=== PATIENT | male | born 1940 | race Caucasian/White ===

== ENCOUNTER 2017-06-29 13:34 | Emergency (ER) | payer MEDICARE, OTHER ==
[~2017-06-29] VITALS: Ht 177.8 cm; Wt 100.0 kg
[~2017-06-29 13:34] MED LIST: ADVIL200 MG PO; ALLEGRA180 MG OR; AMOXIL500 M1 OR; ASPIRIN EC81 MG PO; AUGMENTIN875TAB PO; BACTRIM DS1 TAB PO; CENTRUM SILVER PO; CIPROFLOXACIN250 MG PO; CIPROFLOXACN250 MG PO; CITALOPRAM10 MG PO; DILAUDID 2MG2 MG/TA1 PO; DILAUDID 2MG2 MG/TAB PO; DOXYCYCL HYC100 MG PO; DULERA1 AE1 IN; FLEXERIL OR; FLEXERIL PO; FLOMAX0.4 M1 PO; FLORASTOR250 M1 PO; GLIPIZIDE ER2.5 MG PO; GLIPIZIDE ER5 M1 PO; HYDROCODONE/ACE1 TAB; HYDROCODONE/ACE1 TAB PO; HYDROXYCHLOR200 MG PO; HYDROXYZ HCL25 MG PO; HYDROXYZINE HCL25 M1 PO; KEFLEX500 M1 PO; LANTUS100 MG/ML SC; LORTAB 10 PO; LORTAB 10-325 M1 TAB PO; LORTAB 1010 MG PO; LORTAB 5-325 MG1 TAB PO; LORTAB5 PO; METHOTREXATE2.5 MG; METRONIDAZOL250 MG PO; MULT VITAMI1 PO; NEURONTIN100 MG PO; NORCO1 TA1 PO; NYSTATIN100000 M3 TOP; ONDANSETRON4 MG PO; PERCOCET 5/325M1 TAB OR; PHENERGAN12.5 MG/TA PO; PREDNISONE5 MG; PRILOSEC20 MG OR; PRILOSEC40 MG PO; SULFASALAZIN500 M1 PO; TIZANIDINE HCL4 M1 PO; TRAMADOL HCL50 MG PO; UNK ANTIBIOTIC; VISTARIL PO; ZOFRAN ODT4 MG PO; ZOFRAN ODT4 MG SL; ZOLOFT50 MG PO; ZYRTEC10 MG OR
[2017-06-29 15:01] LABS: HEMATOCRIT 45.5 % (39.0-50.0); HEMOGLOBIN 15.5 g/dl (14.0-18.0); MEAN CELL VOLUME 96.6 fL CALC (80.0-100.0); MEAN CORPUSCULAR HGB 32.9 pG CALC (26.0-32.0); MEAN CORPUSCULAR HGB CONC 34.1 g/L CALC (32.0-36.0); NEUT# 4.97 thou/uL (1.82-7.42); RED BLOOD COUNT 4.71 mill/uL (4.70-6.10); RED CELL DISTRI WIDTH 12.8 % (11.5-15.5)
[2017-06-29 15:04] LABS: ALBUMIN 4.1 g/dL (3.2-5.0); ALKALINE PHOSPHATASE 87 u/l (38-126); ANION GAP 14 (6-22 (CALC)); BILIRUBIN, TOTAL 0.6 mg/dL (0.0-1.4); BUN 18 mg/dL (8-23); BUN/CREATININE RATIO 21 (12-20 (CALC)); CALCIUM 10.1 mg/dL (8.4-10.2); CARBON DIOXIDE 27 mmol/l (22-30); CHLORIDE 105 mmol/l (95-108); CREATININE 0.8 mg/dL (0.7-1.3); GFR > 60 ML/MIN (>=60 (CALC)); GFR FOR AFR.AMER. > 60 ML/MIN (>=60 (CALC)); GLUCOSE 88 mg/dL (82-115); POTASSIUM 4.4 mmol/l (3.5-5.1); SGOT/AST 27 u/l (19-48); SGPT/ALT 35 u/l (11-66); SODIUM 143 mmol/l (137-146); TOTAL PROTEIN 6.7 g/dL (6.3-8.2)
[2017-06-29] MEDS ORDERED: ANTIVERT PO (15:58)
[2017-06-29 16:14] VITALS: BP 125/61
[2017-06-29 17:38] LABS: URINE BILIRUBIN - DIPSTICK NEGATIVE (NEGATIVE); URINE BLOOD DIPSTICK NEGATIVE (NEGATIVE); URINE CLARITY CLEAR; URINE COLOR YELLOW; URINE GLUCOSE - DIPSTICK NEGATIVE (NEGATIVE); URINE KETONE NEGATIVE (NEGATIVE); URINE LEUK ESTERASE NEGATIVE (NEGATIVE); URINE NITRITE - DIPSTICK NEGATIVE (Negative); URINE PROTEIN - DIPSTICK NEGATIVE (NEG-TRACE); URINE UROBILINOGEN - DIPSTICK 0.2 E.U./dL (0.2)
== END 2017-06-29 16:22 | disposition home or self-care (01) ==
LOC: ED 13:34
PROVIDERS: Emergency Medicine
DX: R42 Dizziness and giddiness (principal); R11.2 Nausea with vomiting, unspecified; H53.8 Other visual disturbances; M54.2 Cervicalgia

== ENCOUNTER → 2018-06-21 | Outpatient (REF) | payer MEDICARE, OTHER ==
[~2018-06-21] MED LIST changes: +ANTIVERT PO
[2018-06-21 09:28] LABS: HEMATOCRIT 52.3 % (39.0-50.0); HEMOGLOBIN 17.5 g/dl (14.0-18.0); MEAN CELL VOLUME 93.4 fL CALC (80.0-100.0); MEAN CORPUSCULAR HGB 31.3 pG CALC (26.0-32.0); MEAN CORPUSCULAR HGB CONC 33.5 g/L CALC (32.0-36.0); RED BLOOD COUNT 5.6 mill/uL (4.70-6.10); RED CELL DISTRI WIDTH 17.4 % (11.5-15.5)
[2018-06-21 09:35] LABS: URINE BILIRUBIN - DIPSTICK NEGATIVE (NEGATIVE); URINE BLOOD DIPSTICK NEGATIVE (NEGATIVE); URINE COLOR YELLOW; URINE GLUCOSE - DIPSTICK NEGATIVE (NEGATIVE); URINE KETONE NEGATIVE (NEGATIVE); URINE LEUK ESTERASE NEGATIVE (NEGATIVE); URINE NITRITE - DIPSTICK NEGATIVE (Negative); URINE PROTEIN - DIPSTICK NEGATIVE (NEG-TRACE); URINE SPECIFIC GRAVITY 1.025
[2018-06-21 09:41] LABS: URINE CLARITY CLEAR
[2018-06-21 10:04] LABS: ALBUMIN 4.1 g/dL (3.2-5.0); ALKALINE PHOSPHATASE 96 u/l (38-126); ANION GAP 13 (6-22 (CALC)); BILIRUBIN, TOTAL 0.8 mg/dL (0.0-1.4); BUN 21 mg/dL (8-23); BUN/CREATININE RATIO 22 (12-20 (CALC)); CALCULATED LDLCHOLESTEROL 90 mg/dL (62-129 (CALC)); CARBON DIOXIDE 31 mmol/l (22-30); CHLORIDE 104 mmol/l (95-108); CHOLESTEROL HDL RATIO 5.5 (<4.4 (CALC)); CREATININE 0.9 mg/dL (0.7-1.3); GFR > 60 ML/MIN (>=60 (CALC)); GFR FOR AFR.AMER. > 60 ML/MIN (>=60 (CALC)); HDL CHOLESTEROL 27 mg/dL (>=40); POTASSIUM 4.7 mmol/l (3.5-5.1); SGOT/AST 34 u/l (19-48); SODIUM 143 mmol/l (137-146); TOTAL CHOLESTEROL 149 mg/dl (0-199); TOTAL PROTEIN 6.9 g/dL (6.3-8.2); TOTAL TRIGLYCERIDES 158 mg/dl (30-149); VLDL CHOLESTROL 32 mg/dl (0-38 (CALC))
[2018-06-21 10:28] LABS: TSH, 3RD GENERATION 2.87 uIU/mL (0.47 - 4.68)
== END | disposition home or self-care (01) ==
LOC: LAB 08:21
PROVIDERS: ATTEND Nurse Practitioner Adult Health
DX: I10 Essential (primary) hypertension (principal); J84.10 Pulmonary fibrosis, unspecified; M35.3 Polymyalgia rheumatica; E11.42 Type 2 diabetes mellitus with diabetic polyneuropathy

== ENCOUNTER → 2018-10-29 | Outpatient (REF) | payer MEDICARE, OTHER ==
[2018-10-29 07:43] LABS: HEMATOCRIT 50.7 % (39.0-50.0); HEMOGLOBIN 17.1 g/dl (14.0-18.0); MEAN CELL VOLUME 98.6 fL CALC (80.0-100.0); MEAN CORPUSCULAR HGB 33.3 pG CALC (26.0-32.0); MEAN CORPUSCULAR HGB CONC 33.7 g/L CALC (32.0-36.0); RED BLOOD COUNT 5.14 mill/uL (4.70-6.10); RED CELL DISTRI WIDTH 13.2 % (11.5-15.5)
[2018-10-29 08:00] LABS: ALKALINE PHOSPHATASE 81 u/l (38-126); ANION GAP 14 (6-22 (CALC)); BILIRUBIN, TOTAL 0.7 mg/dL (0.0-1.4); BUN 18 mg/dL (8-23); BUN/CREATININE RATIO 20 (12-20 (CALC)); CALCULATED LDLCHOLESTEROL 98 mg/dL (62-129 (CALC)); CARBON DIOXIDE 30 mmol/l (22-30); CHLORIDE 103 mmol/l (95-108); CHOLESTEROL HDL RATIO 4.3 (<4.4 (CALC)); CREATININE 0.9 mg/dL (0.7-1.3); GFR > 60 ML/MIN (>=60 (CALC)); GFR FOR AFR.AMER. > 60 ML/MIN (>=60 (CALC)); HDL CHOLESTEROL 36 mg/dL (>=40); POTASSIUM 4.4 mmol/l (3.5-5.1); SGOT/AST 35 u/l (19-48); SODIUM 142 mmol/l (137-146); TOTAL CHOLESTEROL 155 mg/dl (0-199); TOTAL PROTEIN 6.5 g/dL (6.3-8.2); TOTAL TRIGLYCERIDES 102 mg/dl (30-149); VLDL CHOLESTROL 20 mg/dl (0-38 (CALC))
== END | disposition home or self-care (01) ==
LOC: LAB 06:57
PROVIDERS: ATTEND Nurse Practitioner Adult Health
DX: E11.42 Type 2 diabetes mellitus with diabetic polyneuropathy (principal); I10 Essential (primary) hypertension

== ENCOUNTER → 2018-11-18 | Outpatient (REF) | payer MEDICARE, OTHER ==
[2018-11-18 10:00] LABS: HEMATOCRIT 47.5 % (39.0-50.0); HEMOGLOBIN 16.2 g/dl (14.0-18.0); IMMATURE GRANULOCYTES 1.1 % (0.0-5.0); MEAN CELL VOLUME 99.6 fL CALC (80.0-100.0); MEAN CORPUSCULAR HGB CONC 34.1 g/L CALC (32.0-36.0); NEUT# 5.21 thou/uL (1.82-7.42); RED BLOOD COUNT 4.77 mill/uL (4.70-6.10); RED CELL DISTRI WIDTH 13.8 % (11.5-15.5)
[2018-11-18 10:13] LABS: ALBUMIN 3.9 g/dL (3.2-5.0); BILIRUBIN, TOTAL 0.8 mg/dL (0.0-1.4); C-REACTIVE PROTEIN 1.3 mg/dL (0-0.9); CREATININE 0.9 mg/dL (0.7-1.3); TOTAL PROTEIN 6.8 g/dL (6.3-8.2)
== END | disposition home or self-care (01) ==
LOC: LAB 09:17
PROVIDERS: ATTEND Internal Medicine Rheumatology
DX: M06.09 Rheumatoid arthritis without rheumatoid factor, multiple sites (principal); Z79.899 Other long term (current) drug therapy

== ENCOUNTER 2019-05-07 06:43 | Day surgery (SDC) | payer MEDICARE, OTHER ==
[~2019-05-07] VITALS: Ht 177.8 cm; Wt 97.5 kg
[~2019-05-07 06:43] MED LIST changes: +ARNUITY EL50 MCG/ACT; +BRIMONIDINE TAR0.2 %; +LEXAPRO10 MG PO; +MOBIC7.5 M1 PO; +PRESERVISION AREDS 2; +TRESIBA100 UNIT/M
[2019-05-07] MEDS ORDERED: LEVEMIR100 UNIT/M SC (07:02)
[2019-05-07 08:40] VITALS: BP 117/67
== END 2019-05-07 09:07 | disposition home or self-care (01) ==
LOC: ORM 06:43
PROVIDERS: ATTEND Anesthesiology Pain Medicine
PROC: 3E0U3BZ Introduction of Anesthetic Agent into Joints, Percutaneous Approach (ICD-10-PCS; principal; 2019-05-07)
PROC: 3E0U33Z Introduction of Anti-inflammatory into Joints, Percutaneous Approach (ICD-10-PCS; 2019-05-07)
PROC: B01B1ZZ Fluoroscopy of Spinal Cord using Low Osmolar Contrast (ICD-10-PCS; 2019-05-07)
PROC: 3E0U3BZ Introduction of Anesthetic Agent into Joints, Percutaneous Approach (ICD-10-PCS; 2019-05-07)
PROC: 3E0U33Z Introduction of Anti-inflammatory into Joints, Percutaneous Approach (ICD-10-PCS; 2019-05-07)
DX: M70.62 Trochanteric bursitis, left hip (principal); M25.552 Pain in left hip; M25.562 Pain in left knee; M76.12 Psoas tendinitis, left hip; Z99.81 Dependence on supplemental oxygen

== ENCOUNTER 2019-05-21 06:38 | Day surgery (SDC) | payer MEDICARE, OTHER ==
[~2019-05-21] VITALS: Ht 177.8 cm; Wt 98.0 kg
[~2019-05-21 06:38] MED LIST changes: +LEVEMIR100 UNIT/M SC
[2019-05-21 08:12] VITALS: BP 115/69
== END 2019-05-21 08:40 | disposition home or self-care (01) ==
LOC: ORM 06:38
PROVIDERS: ATTEND Anesthesiology Pain Medicine
PROC: 3E0U33Z Introduction of Anti-inflammatory into Joints, Percutaneous Approach (ICD-10-PCS; principal; 2019-05-21)
PROC: 3E0U3BZ Introduction of Anesthetic Agent into Joints, Percutaneous Approach (ICD-10-PCS; 2019-05-21)
PROC: 3E0U33Z Introduction of Anti-inflammatory into Joints, Percutaneous Approach (ICD-10-PCS; 2019-05-21)
PROC: 3E0U3BZ Introduction of Anesthetic Agent into Joints, Percutaneous Approach (ICD-10-PCS; 2019-05-21)
DX: M70.62 Trochanteric bursitis, left hip (principal); M25.552 Pain in left hip; M25.562 Pain in left knee; M76.72 Peroneal tendinitis, left leg

== ENCOUNTER 2019-08-06 05:54 | Day surgery (SDC) | payer MEDICARE, OTHER ==
[~2019-08-06] VITALS: Ht 177.8 cm; Wt 97.5 kg
[2019-08-06 10:46] VITALS: BP 141/88
== END 2019-08-06 09:13 | disposition home or self-care (01) ==
LOC: ORM 05:54
PROVIDERS: ATTEND Anesthesiology Pain Medicine
DX: M21.372 Foot drop, left foot (principal); M54.16 Radiculopathy, lumbar region
CPT/HCPCS: Q9967

== ENCOUNTER 2019-08-20 | Day surgery (SDC) | payer MEDICARE, OTHER ==
[2020-05-18] MEDS ORDERED: TRAMADOL HCL50 MG PO (15:39)
[2020-06-22] MEDS ORDERED: TRAMADOL HCL50 MG PO (09:10)
== END 2019-08-20 07:59 | disposition home or self-care (01) ==
DX: M51.36 Other intervertebral disc degeneration, lumbar region (principal); M21.372 Foot drop, left foot; M54.10 Radiculopathy, site unspecified
CPT/HCPCS: Q9967

== ENCOUNTER 2019-09-03 | Day surgery (SDC) | payer MEDICARE, OTHER ==
[2020-05-18] MEDS ORDERED: TRAMADOL HCL50 MG PO (15:39)
[2020-06-22] MEDS ORDERED: TRAMADOL HCL50 MG PO (09:10)
== END 2019-09-03 09:35 | disposition home or self-care (01) ==
DX: M21.372 Foot drop, left foot (principal); M51.36 Other intervertebral disc degeneration, lumbar region
CPT/HCPCS: Q9967

== ENCOUNTER 2020-04-20 08:34 | Inpatient (IN) | payer MEDICARE, OTHER ==
[~2020-04-20] VITALS: Ht 177.8 cm; Wt 95.3 kg
[2020-04-20 09:15] LABS: URINE BLOOD DIPSTICK LARGE (NEGATIVE); URINE GLUCOSE - DIPSTICK NEGATIVE (NEGATIVE); URINE KETONE NEGATIVE (NEGATIVE); URINE LEUK ESTERASE NEGATIVE (NEGATIVE); URINE NITRITE - DIPSTICK NEGATIVE (Negative); URINE PROTEIN - DIPSTICK 100 mg/dL (NEG-TRACE); URINE SPECIFIC GRAVITY >=1.030; URINE UROBILINOGEN - DIPSTICK >=8.0 E.U./dL (0.2)
[2020-04-20 09:18] LABS: URINE BILIRUBIN - DIPSTICK NEGATIVE (NEGATIVE); URINE COLOR AMBER
[2020-04-20 09:23] LABS: HEMATOCRIT 58.7 % (39.0-50.0); HEMOGLOBIN 18.8 g/dl (14.0-18.0); IMMATURE GRANULOCYTES 0.6 % (0.0-5.0); MEAN CELL VOLUME 99.2 fL CALC (80.0-100.0); MEAN CORPUSCULAR HGB 31.8 pG CALC (26.0-32.0); NEUT# 11.1 thou/uL (1.82-7.42); RED BLOOD COUNT 5.92 mill/uL (4.70-6.10)
[2020-04-20 09:27] LABS: GFR > 60 ML/MIN (>=60 (CALC)); GFR FOR AFR.AMER. > 60 ML/MIN (>=60 (CALC))
[2020-04-20 09:37] LABS: ALBUMIN 4.4 g/dL (3.2-5.0); ALKALINE PHOSPHATASE 101 u/l (38-126); ANION GAP 16 (6-22 (CALC)); BUN 28 mg/dL (8-23); BUN/CREATININE RATIO 31 (12-20 (CALC)); CARBON DIOXIDE 25 mmol/l (22-30); CHLORIDE 103 mmol/l (95-108); CPK 185 u/l (52-200); CREATININE 0.9 mg/dL (0.7-1.3); GFR > 60 ML/MIN (>=60 (CALC)); GFR FOR AFR.AMER. > 60 ML/MIN (>=60 (CALC)); LIPASE 107 u/l (23-300); MAGNESIUM 1.7 mg/dL (1.6-2.3); POTASSIUM 4.6 mmol/l (3.5-5.1); SGOT/AST 36 u/l (19-48); SODIUM 140 mmol/l (137-146)
[2020-04-20 09:40] LABS: URINE RBC 25-50 RBC/hpf (0-5)
[2020-04-20 09:42] LABS: BILIRUBIN, TOTAL 2.5 mg/dL (0.0-1.4)
[2020-04-20 09:45] LABS: D-DIMER 1.27 mg/L (0.19-0.60)
[2020-04-20 09:49] LABS: C-REACTIVE PROTEIN 14.9 mg/dL (0-0.9)
[2020-04-20 09:54] LABS: PROTHROMBIN TIME 11.8 SECONDS (9.0-12.5)
[2020-04-20 09:56] LABS: INTERNATIONAL NORMALIZED RATIO 1.2 RATIO (0.7-1.3)
[2020-04-20] MEDS ORDERED: LEVEMIR100 UNIT/M (10:17)
[2020-04-20] MEDS ORDERED: PREDNISONE10 MG PO (10:22)
[2020-04-20 14:02] VITALS: BP 107/59
[2020-04-20 16:06] VITALS: BP 115/61
[2020-04-20 18:00] VITALS: BP 108/64
[2020-04-20 20:00] VITALS: BP 106/72
[2020-04-20 22:00] VITALS: BP 110/70
[2020-04-21] VITALS (20 sets, daily range): BP systolic 95–131; BP diastolic 65–82
[2020-04-21 05:43] LABS: IMMATURE GRANULOCYTES 0.5 % (0.0-5.0); MEAN CELL VOLUME 100.6 fL CALC (80.0-100.0); MEAN CORPUSCULAR HGB 31.5 pG CALC (26.0-32.0); MEAN CORPUSCULAR HGB CONC 31.4 g/dL CAL (32.0-36.0); NEUT# 6.88 thou/uL (1.82-7.42); RED BLOOD COUNT 5.2 mill/uL (4.70-6.10); RED CELL DISTRI WIDTH 14.7 % (11.5-15.5)
[2020-04-21 06:02] LABS: HEMATOCRIT 52.3 % (39.0-50.0); HEMOGLOBIN 16.4 g/dl (14.0-18.0)
[2020-04-21 06:11] LABS: ALKALINE PHOSPHATASE 62 u/l (38-126); ANION GAP 10 (6-22 (CALC)); BUN 23 mg/dL (8-23); BUN/CREATININE RATIO 40 (12-20 (CALC)); CARBON DIOXIDE 22 mmol/l (22-30); CHLORIDE 108 mmol/l (95-108); CREATININE 0.6 mg/dL (0.7-1.3); GFR > 60 ML/MIN (>=60 (CALC)); GFR FOR AFR.AMER. > 60 ML/MIN (>=60 (CALC)); POTASSIUM 4.5 mmol/l (3.5-5.1); SGOT/AST 26 u/l (19-48); SODIUM 136 mmol/l (137-146)
[2020-04-21 06:12] LABS: ALBUMIN 2.8 g/dL (3.2-5.0); TOTAL PROTEIN 5.1 g/dL (6.3-8.2)
[2020-04-22] VITALS (11 sets, daily range): BP systolic 106–140; BP diastolic 67–83
[2020-04-23 04:45] VITALS: BP 125/78
[2020-04-23 05:51] LABS: HEMATOCRIT 49.8 % (39.0-50.0); HEMOGLOBIN 15.7 g/dl (14.0-18.0); IMMATURE GRANULOCYTES 0.7 % (0.0-5.0); MEAN CELL VOLUME 101.6 fL CALC (80.0-100.0); MEAN CORPUSCULAR HGB CONC 31.5 g/dL CAL (32.0-36.0); NEUT# 6.94 thou/uL (1.82-7.42); RED BLOOD COUNT 4.9 mill/uL (4.70-6.10); RED CELL DISTRI WIDTH 14.6 % (11.5-15.5)
[2020-04-23 06:24] LABS: ANION GAP 8 (6-22 (CALC)); BUN 26 mg/dL (8-23); BUN/CREATININE RATIO 48 (12-20 (CALC)); CARBON DIOXIDE 21 mmol/l (22-30); CHLORIDE 112 mmol/l (95-108); CREATININE 0.5 mg/dL (0.7-1.3); GFR > 60 ML/MIN (>=60 (CALC)); GFR FOR AFR.AMER. > 60 ML/MIN (>=60 (CALC)); POTASSIUM 4.9 mmol/l (3.5-5.1); SODIUM 135 mmol/l (137-146)
[2020-04-23 08:45] VITALS: BP 122/73
[2020-04-23 14:42] VITALS: BP 136/77
[2020-04-23 19:10] VITALS: BP 138/80
[2020-04-24 04:00] VITALS: BP 135/78
[2020-04-24] MEDS ORDERED: LEVAQUIN750 MG PO ×2 (12:41)
[2020-05-18] MEDS ORDERED: TRAMADOL HCL50 MG PO (15:39)
[2020-06-22] MEDS ORDERED: TRAMADOL HCL50 MG PO (09:10)
== END 2020-04-24 13:18 | disposition home or self-care (01) | DRG 871 ==
LOC: ED 08:34 → ED-I 10:10 → ED 10:25 → ICU 10:26 → MS2 04-22 14:23
PROVIDERS: Family Medicine; Nurse Practitioner; ADMIT Internal Medicine; ATTEND Internal Medicine
DX: A41.9 Sepsis, unspecified organism (principal); J18.9 Pneumonia, unspecified organism; J96.21 Acute and chronic respiratory failure with hypoxia; E87.2 Acidosis; E87.1 Hypo-osmolality and hyponatremia; R65.20 Severe sepsis without septic shock; E11.40 Type 2 diabetes mellitus with diabetic neuropathy, unspecified; M06.9 Rheumatoid arthritis, unspecified; J84.10 Pulmonary fibrosis, unspecified; K21.9 Gastro-esophageal reflux disease without esophagitis; M54.9 Dorsalgia, unspecified; G89.29 Other chronic pain; Z99.81 Dependence on supplemental oxygen; Z87.442 Personal history of urinary calculi; Z79.4 Long term (current) use of insulin; Z20.828 Contact with and (suspected) exposure to other viral communicable diseases
CPT/HCPCS: J1650; Q9967

== ENCOUNTER 2020-06-02 06:03 | Day surgery (SDC) | payer MEDICARE, OTHER ==
[~2020-06-02] VITALS: Ht 177.8 cm; Wt 90.7 kg
[~2020-06-02 06:03] MED LIST changes: +LEVAQUIN750 MG PO; +LEVEMIR100 UNIT/M; +PREDNISONE10 MG PO
[2020-06-02 08:08] VITALS: BP 152/78
[2020-06-22] MEDS ORDERED: TRAMADOL HCL50 MG PO (09:10)
== END 2020-06-02 08:45 | disposition home or self-care (01) ==
LOC: ORM 06:03
PROVIDERS: ATTEND Anesthesiology Pain Medicine
DX: M46.93 Unspecified inflammatory spondylopathy, cervicothoracic region (principal); Z01.84 Encounter for antibody response examination

== ENCOUNTER 2020-06-30 06:08 | Day surgery (SDC) | payer MEDICARE, OTHER ==
[~2020-06-30] VITALS: Ht 177.8 cm; Wt 90.7 kg
[2020-06-30 07:50] VITALS: BP 130/82
[2020-07-13] MEDS ORDERED: TRAMADOL HCL50 MG PO (09:58)
== END 2020-06-30 08:17 | disposition home or self-care (01) ==
LOC: ORM 06:08
PROVIDERS: ATTEND Anesthesiology Pain Medicine
DX: M54.2 Cervicalgia (principal); R51.9 Headache, unspecified; M54.6 Pain in thoracic spine; Z01.84 Encounter for antibody response examination